=== PATIENT | female | born 1980 ===

== ENCOUNTER 2017-04-25 00:53 | Emergency (ER) | payer SELFPAY ==
[2017-04-25 01:15] VITALS: RESP 16
[2017-04-25 02:09] LABS: RBC URINE 3 /hpf (0-3); URINE BILIRUBIN NEGATIVE (NEGATIVE); URINE BLOOD SMALL (NEGATIVE); URINE COLOR YELLOW (YELLOW); URINE GLUCOSE (UA) NEG (Normal); URINE KETONE NEGATIVE (NEGATIVE); URINE LEUKOCYTE ESTERASE NEG Leu/uL (Negative); URINE PROTEIN NEGATIVE (NEGATIVE); URINE UROBILINOGEN 0.2-1.0 mg/dL (0.2-1.0); WBC URINE 2 /hpf (0-5)
--- NOTE | 2017-04-25 02:59 | ED PDOC ---
HPI: Back Time Seen by Provider: 04/25/17 01:00 Chief Complaint (Nursing): Back Pain Chief Complaint (Provider): Left flank pain History Per: Patient History/Exam Limitations: no limitations Onset/Duration Of Symptoms: Days (3) Current Symptoms Are (Timing): Still Present Quality Of Discomfort: "Pain" Severity: Mild Exacerbating Factor(s): Movement (changing from standing to sitting, and vice versa) Additional History Per: Patient Additional Complaint(s): 37 y/o female with no medical problems, c/o left flank pain that radiates down to the left leg for 3 days. Pain is worse with movement e.g. changing from a standing to a sitting position, and vice-versa. Denies trauma or fall. No lower extremity weakness, numbness, or incontinence of bowel or urinary. Past Medical History Reviewed: Historical Data, Nursing Documentation, Vital Signs Vital Signs: Last Vital Signs Temp 98.6 F 04/25/17 01:13 Pulse 69 04/25/17 01:13 Resp 16 04/25/17 01:13 BP 125/73 04/25/17 01:13 Pulse Ox 98 04/25/17 01:13 - Surgical History Surgical History: (4) - Family History Family History: States: Unknown Family Hx - Home Medications Home Medications: Ambulatory Orders Medication Instructions Recorded Ibuprofen [Motrin] 600 mg PO Q6H PRN #20 tab 04/25/17 - Allergies Allergies/Adverse Reactions: Allergies Allergy/AdvReac Type Severity Reaction Status Date / Time No Known Allergies Allergy Verified 04/25/17 01:13 Review of Systems ROS Statement: Except As Marked, All Systems Reviewed And Found Negative Constitutional: Negative for: Other (Trauma or fall) Genitourinary Female: Negative for: Incontinence Musculoskeletal: Positive for: Back Pain (left flank), Leg Pain (left) Neurological: Negative for: Weakness, Numbness Physical Exam - Reviewed Nursing Documentation Reviewed: Yes Vital Signs Reviewed: Yes - Physical Exam Appears: Positive for: Well, Non-toxic, No Acute Distress Head Exam: Positive for: ATRAUMATIC, NORMAL INSPECTION, NORMOCEPHALIC Skin: Positive for: Normal Color, Warm, DRY Back: Positive for: Other (No hematoma of the back. No step off deformity). 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 Negative for: Motor/Sensory Deficits, Aphasia, Facial Droop - ECG O2 Sat by Pulse Oximetry: 98 (RA) Pulse Ox Interpretation: Normal Medical Decision Making Medical Decision Making: Impression: * left flank pain that radiates down to the left leg for 3 days. Plans: * Valium * Toradol * XRAY LS spine * UA DDx: Sciatica Reeval: XRAY LS spine: Shows no fractures or dislocations. 05:21. Patient is sleeping in bed and is resting comfortably. Scribe Attestation: Documented by Kenzie mock, acting as a scribe for Danitza Lyman. Provider Scribe Attestation: All medical record entries made by the Scribe were at my direction and personally dictated by me. I have reviewed the chart and agree that the record accurately reflects my personal performance of the history, physical exam, medical decision making, and the department course for this patient. I have also personally directed, reviewed, and agree with the discharge instructions and disposition. Disposition - Clinical Impression Clinical Impression: Sciatic leg pain - Patient ED Disposition Is Patient to be Admitted: No Counseled Patient/Family Regarding: Studies Performed, Diagnosis, Need For Followup - Disposition Referrals: [facility] [Outside] [facility] [Outside] Disposition: Routine/Home Disposition Time: 05:40 Condition: IMPROVED Additional Instructions: follow up with your primary doctor in 1-2 days take motrin for pain return to the ED with any worsening or concerning symptoms Prescriptions: Ibuprofen [Motrin] 600 mg PO Q6H PRN #20 tab PRN Reason: Pain, Moderate (4-7) Instructions: Sciatica (ED) Forms: [facility] (Kinyarwanda) Print Language: JAPANESE
[2017-04-25 05:18] VITALS: BP 115/75; PULSE 67; TEMP 98
[2017-04-25 05:22] VITALS: O2SAT 98
--- NOTE | 2017-04-25 08:37 | RAD ---
PROCEDURE: Radiographs of the Lumbar Spine. HISTORY: back pain COMPARISON: None FINDINGS: BONES: Vertebral body heights are maintained. Normal lumbar lordosis maintained. DISC SPACES: Disc space heights are preserved. OTHER FINDINGS: None. IMPRESSION: No lumbar spine fracture or subluxation identified.
== END 2017-04-25 05:28 | disposition home or self-care (01) ==
LOC: H.ER 00:53
DX: M54.32 Sciatica, left side (principal); R10.9 Unspecified abdominal pain
CPT/HCPCS: 72100; 81003; 81025; 87086; 96372; 99282; J1885